=== PATIENT | female | born 1930 | race Asian ===

== ENCOUNTER 2016-12-30 10:48 | Inpatient (IN) | payer OTHER ==
[~2016-12-30] VITALS: Ht 157.5 cm; Wt 48.5 kg
[2016-12-30] MEDS ORDERED: ONDANSETRON HCL/PF - ER 4 MG/2 ML VIAL IV ONE (11:00)
[2016-12-30] MEDS ORDERED: IV NS 0.9% 500 ML BAG IV ONE (11:00)
[2016-12-30] MEDS ORDERED: MECLIZINE HCL 25 MG TABLET PO ONE (11:00)
--- NOTE | 2016-12-30 11:00 | NUR ---
PT BIBA FOR SYNCOPAL EPISODE IN STORE. PT AAOX2. NOTED GEN WEAKNESS. VSS. NO TRAUMA NOTED. MD AT BS FOR EVAL. SAFETY AND COMFORT MEASURES PROVIDED. WILL MONITOR.
[2016-12-30] MEDS ORDERED: MECLIZINE HCL 25 MG TABLET ONE (11:13)
[2016-12-30] MEDS ORDERED: ONDANSETRON HCL/PF 4 MG/2 ML VIAL ONE (11:14)
[2016-12-30] MEDS ORDERED: IV SET PRIMARY PUMP SET 1 EA INFUS.SET MC ONE ×2 (11:14→15:16)
[2016-12-30] MEDS ORDERED: IV NS 0.9% 500 ML IV ONE (11:14)
--- NOTE | 2016-12-30 11:15 | NUR ---
IV ACESS STARTED. PT MEDICATED ORDERED.
--- NOTE | 2016-12-30 11:20 | NUR ---
REPAIRER SWITCHGEAR AT FOR BLOOD DRAW.
[2016-12-30 11:29] LABS: BASOPHILS % (AUTO) 0.6 % (0.0-2.0); EOSINOPHILS # (AUTO) 0.1 /CMM (0.0-0.7); EOSINOPHILS % (AUTO) 2.6 % (0.0-6.0); HEMATOCRIT 40 % (33-45); HEMOGLOBIN 13.2 g/dL (11.5-14.8); LYMPHOCYTES # (AUTO) 0.9 /CMM (0.8-4.8); LYMPHOCYTES % (AUTO) 16.4 % (20.0-44.0); MEAN CORPUSCULAR HEMOGLOBIN 31 PG (26.0-33.0); MEAN CORPUSCULAR HGB CONC 34 g/dl (31.0-36.0); MEAN CORPUSCULAR VOLUME 91 fL (82-100); MONOCYTES # (AUTO) 0.4 /CMM (0.1-1.30); MONOCYTES % (AUTO) 7.1 % (2.0-12.0); NEUTROPHILS % (AUTO) 73.3 % (43.0-81.0); PLATELET COUNT (AUTO) 204 /CMM (150-450); RDW COEFFICIENT OF VARIATION 14.9 (11.5-15.0); RED BLOOD CELL COUNT(AUTO) 4.32 MIL/uL (4.0-5.2); WHITE BLOOD COUNT (AUTO) 5.4 K/uL (4.3-11.0)
--- NOTE | 2016-12-30 11:30 | NUR ---
PT TAKEN TO CT.
[2016-12-30 11:46] LABS: CALCIUM, SERUM 9.2 mg/dL (8.5-10.1); CARBON DIOXIDE 24 mmol/L (21-32); CHLORIDE 101 mmol/L (98-107); CREATININE 1.1 mg/dL (0.6-1.3); GLUCOSE 152 mg/dL (74-106); POTASSIUM 4.5 mmol/L (3.5-5.1); SODIUM SERUM 134 mmol/L (136-145); UREA NITROGEN, BLOOD 21 mg/dL (7-18)
[2016-12-30 11:48] LABS: INR 1.87 (0.87-1.13); PROTHROMBIN TIME 20.1 SECS (9.5-12.7)
[2016-12-30 11:54] LABS: TROPONIN I < 0.017 ng/mL (0.00-0.056)
--- NOTE | 2016-12-30 12:44 | NUR ---
PAGED DIVE SUPERINTENDENT FOR [facility] DR FRASER
--- NOTE | 2016-12-30 13:04 | NUR ---
CALLED GREG NURSING DIGITAL ASSET COORDINATOR FOR TELE BED
--- NOTE | 2016-12-30 13:07 | NUR ---
REPAGED DR FRASER
[2016-12-30] MEDS ORDERED: ALEN70TA45 PO (13:14)
[2016-12-30] MEDS ORDERED: AMLO5TAB2 PO (13:14)
[2016-12-30] MEDS ORDERED: LABE200T PO (13:14)
[2016-12-30] MEDS ORDERED: ALLO100T PO (13:14)
[2016-12-30] MEDS ORDERED: WARF2TAB6 PO (13:14)
[2016-12-30] MEDS ORDERED: WARF1TAB6 PO (13:14)
[2016-12-30] MEDS ORDERED: DIGO125T PO (13:14)
[2016-12-30] MEDS ORDERED: SIMV20TA6 PO (13:14)
[2016-12-30] MEDS ORDERED: MAGN400T26 PO (13:14)
[2016-12-30] MEDS ORDERED: LOSA50TA21 PO (13:14)
--- NOTE | 2016-12-30 13:39 | NUR ---
REPORT GIVEN TO LANDEN WILSON FOR TELE [phone]
--- NOTE | 2016-12-30 14:15 | NUR ---
LIQUID LOADER NOTES RECEIVED REPORT FROM ER NURSE. PATIENT ARRIVED TO UNIT AT 1405. PATIENT VITAL SIGNS CHECKED, BP 174/71, DR FRASER MADE AWARE. NO NEW ORDERS RECEIVED. NO SIGNS OR SYMPTOMS OF DISTRESS. PATIENT'S SON AND GRANDSON ARE AT THE BEDSIDE. PATIENT SPEAKS [place] ONLY. WILL CONTINUE TO MONITOR, ASSESS AND EDUCATE PATIENT THROUGH OUT MY SHIFT.
[2016-12-30] MEDS ORDERED: MAGNESIUM HYDROXIDE 30 ML UDC PO PRN (14:30)
[2016-12-30] MEDS ORDERED: HYDROCODONE/APAP 5/325MG 1 EACH TABLET PO PRN (14:30)
[2016-12-30] MEDS ORDERED: MAG HYDROX/AL HYDROX/SIMETH 30 ML UDC PO PRN (14:30)
[2016-12-30] MEDS ORDERED: IV NS 0.9% 500 ML IV SCH (14:30)
[2016-12-30] MEDS ORDERED: Z GUARD REMEDY 2 OZ OINT TP PRN (14:30)
[2016-12-30] MEDS ORDERED: ACETAMINOPHEN 325 MG TABLET PO PRN (14:30)
[2016-12-30] MEDS ORDERED: ONDANSETRON HCL/PF 4 MG/2 ML VIAL IVP PRN (14:30)
[2016-12-30] MEDS ORDERED: ZOLPIDEM TARTRATE 5 MG TABLET PO PRN (14:30)
[2016-12-30] MEDS ORDERED: SET RED CAP 1 EA INFUS.SET MC ONE (15:16)
[2016-12-30] MEDS: IV NS 0.9% 1,000 ML IV PRN (15:28)
[2016-12-30 16:00] VITALS: BP 153/72
[2016-12-30] MEDS ORDERED: WARFARIN SODIUM 2 MG TABLET PO SCH (17:00)
--- NOTE | 2016-12-30 18:39 | NUR ---
RN CLOSING NOTES PATIENT IS IN BED, ALERT AND ORIENTED TO NAME, PLACE AND TIME. BED IN LOW POSITION, LOCKED AND TWO SIDE RAILS ARE UP. PORTUGUESE SPEAKER. NO SIGNS OR SYMPTOMS OF DISTRESS. PATIENT DENIED PAIN. DIGOXIN LEVEL IS PENDING. IV SITE IS POTENT AND INTACT, NS FLUIDS ARE CURRENTLY RUNNING AT 50ML/HR. FLUID ORDER IS 75ML/HR, MD MADE AWARE OF HIGH BLOOD PRESSURE AND FLUID CAN BE INCREASED WHEN BLOOD PRESSURE IS LOWERED. PER PHARMACY, INR NEEDS TO BE ORDER DAILY FOR WARFARIN. WILL ENDORSE TO SHIPPING HAND NURSE.
--- NOTE | 2016-12-30 19:49 | NUR ---
FINISHER MAP AND CHART INITIAL NOTES: RECEIVED REPORT FROM CARMIT RN. PT ON BED, AWAKE, A/O X3 SENE[place] SPEAKING, PLEASANT LADY, ON ROOM AIR, RESPIRATION EVEN AND UNLABORED, NO SOB NOTED, DENIES ANY PAIN OR DISCOMFORT ATT HIS TIME. DENIES ANY CHEST PAIN LIGHT HEADEDNESS OR DIZZINESS. LEFT HAND IV G20 PATENT AND FLUSHING WELL, WITH ONGOING IVF ORDERED. ON TELE SINUS RHYTHM HR 69. SAFETY PRECAUTION FOR FALL INITIATED CALL LIGHT IN REACH, WILL CONTINUE TO MONITOR.
[2016-12-30 20:00] VITALS: BP_SYST 144; BP_SYST 157; BP_SYST 178; BP_DIAS 63; BP_DIAS 65; BP_DIAS 77
--- NOTE | 2016-12-30 20:00 | NUR ---
CIVIL GEOTECHNICAL ENGINEER NOTES: ORTHOSTATIC BP REVEAL: LAYING IN BED: 144/65 HR 67 RR 20 SPO2 98% 97.4 SITTIN/63 HR 73 RR 20 SPO2 98% 97.4 STANDIN/77 HR 73 RR 20 SPO2 98% 97.4 PT DENIES ANY DIZZINESS LIGHT HEADEDNESS OR CHEST PAIN. WILL CONTINUE TO MONITOR
[2016-12-30 22:00] VITALS: BP_SYST 138; BP_SYST 141; BP_SYST 145; BP_DIAS 62; BP_DIAS 72; BP_DIAS 76
--- NOTE | 2016-12-30 22:00 | NUR ---
ABRASIVE GRADER HELPER NOTES: RECHECKED ORTHOSTATIC BP AND REVEAL: LAYING IN BED: 145/72 HR 68 RR 19 98.2 95% SITTIN/62 HR 75 RR 19 98.2 95% STANDIN/76 HR 76 RR 19 98.2 95% PT DENIES ANY CHEST PAIN DIZZINESS OR LIGHT HEADEDNESS
[2016-12-30] MEDS: SIMVASTATIN 20 MG TABLET PO SCH (22:18)
[2016-12-31] VITALS: BP_SYST 131; BP_SYST 133; BP_SYST 147; BP_DIAS 68; BP_DIAS 70; BP_DIAS 71
[2016-12-31] MEDS: IV NS 0.9% 1,000 ML IV PRN (03:59)
[2016-12-31 04:00] VITALS: BP_SYST 148; BP_SYST 149; BP_SYST 155; BP_SYST 181; BP_DIAS 70; BP_DIAS 73; BP_DIAS 85
--- NOTE | 2016-12-31 06:44 | NUR ---
tele marketing executive closing notes: pt on bed, awake, remains on room air, no sob noted, left hand iv access remains patent and flushing well, infusing with ivf ns. remains on sinus rhythm hr 80. vs remains stable. orthostatic bp result relayed to md cable television installer. no episode of dizziness or light headedness noted throughout the shift. pt denies any chest pain or discomfort. safety precautions for fall remains engaged. call light in reach. will endorse to day rn for girish.
--- NOTE | 2016-12-31 07:20 | NUR ---
AGRICULTURAL LENDER NOTES Patient in bed, awake, alert and oriented, no distress noted, denies pain or discomfort at this time, breathing even and unlabored, no sob, safety measures in placed, needs anticipated and met, call light within reach, will continue to monitor.
[2016-12-31 07:26] LABS: BASOPHILS % (AUTO) 0.3 % (0.0-2.0); EOSINOPHILS # (AUTO) 0.1 /CMM (0.0-0.7); EOSINOPHILS % (AUTO) 2.3 % (0.0-6.0); HEMATOCRIT 37 % (33-45); HEMOGLOBIN 12.6 g/dL (11.5-14.8); LYMPHOCYTES # (AUTO) 1.1 /CMM (0.8-4.8); LYMPHOCYTES % (AUTO) 21.4 % (20.0-44.0); MEAN CORPUSCULAR HEMOGLOBIN 31 PG (26.0-33.0); MEAN CORPUSCULAR HGB CONC 34 g/dl (31.0-36.0); MEAN CORPUSCULAR VOLUME 91 fL (82-100); MONOCYTES # (AUTO) 0.5 /CMM (0.1-1.30); MONOCYTES % (AUTO) 9.2 % (2.0-12.0); NEUTROPHILS # (AUTO) 3.5 /CMM (1.8-8.9); NEUTROPHILS % (AUTO) 66.8 % (43.0-81.0); PLATELET COUNT (AUTO) 213 /CMM (150-450); RDW COEFFICIENT OF VARIATION 15.6 (11.5-15.0); WHITE BLOOD COUNT (AUTO) 5.2 K/uL (4.3-11.0)
[2016-12-31 08:00] VITALS: BP 180/79
[2016-12-31 08:03] LABS: CALCIUM, SERUM 8.8 mg/dL (8.5-10.1); CREATININE 0.9 mg/dL (0.6-1.3); MAGNESIUM 2.5 mg/dL (1.8-2.4); PHOSPHORUS 3.4 mg/dL (2.5-4.9); POTASSIUM 4.5 mmol/L (3.5-5.1)
[2016-12-31] MEDS: AMLODIPINE BESYLATE 5 MG TABLET PO SCH (08:27)
[2016-12-31] MEDS: ALLOPURINOL 100 MG TABLET PO SCH (08:28)
[2016-12-31 08:57] LABS: TROPONIN I < 0.017 ng/mL (0.00-0.056)
[2016-12-31] MEDS ORDERED: LOSARTAN POTASSIUM 50 MG TABLET PO SCH (09:00)
[2016-12-31] MEDS ORDERED: MAGNESIUM OXIDE 400 MG TABLET PO SCH (09:00)
--- NOTE | 2016-12-31 09:00 | NUR ---
RN MS NOTES Patient seen and examined by Dr. Del Rio, aware of elevated blood pressure, received new orders, order noted and carried out.
[2016-12-31] MEDS: VALSARTAN 80 MG TABLET PO SCH (09:30)
[2016-12-31 11:00] VITALS: BP 149/67
[2016-12-31] MEDS ORDERED: DIGOXIN 0.125 MG TABLET PO SCH (13:00)
[2016-12-31 13:48] LABS: INR 1.17 (0.87-1.13); PROTHROMBIN TIME 12.6 SECS (9.5-12.7)
[2016-12-31 15:38] LABS: APPEARANCE,URINE CLOUDY (CLEAR); BILIRUBIN,URINE NEGATIVE (NEGATIVE); BLOOD, URINE TRACE Ery/uL (NEGATIVE); COLOR,URINE YELLOW (YELLOW); KETONES,URINE NEGATIVE (NEGATIVE); LEUKOCYTE ESTERASE ,URINE 3+ (NEGATIVE); NITRITE, URINE NEGATIVE (NEGATIVE); PH,URINE 6.5 (5.0-8.0); PROTEIN,URINE NEGATIVE (NEGATIVE); UGLUCOSE NEGATIVE (NEGATIVE); UROBILINOGEN,URINE 0.2 EU/dL (0.2)
[2016-12-31 15:53] LABS: CANNABINOID, URINE NEGATIVE (NEGATIVE); PHENCYCLIDINE SCREEN,URINE NEGATIVE (NEGATIVE)
[2016-12-31 15:55] LABS: IRON, SERUM 73 ug/dl (50-175); TOTAL IRON BINDING CAPACITY 280 ug/dl (250-450)
[2016-12-31 16:00] VITALS: BP 150/76
[2016-12-31 16:15] LABS: ADD URINE CULTURE YES; BACTERIA,URINE Few /HPF (None Seen); SQUAMOUS EPITHELIAL CELL,UR Few /HPF (None Seen); WBC,URINE 51-80 /HPF (0-3)
[2016-12-31 16:27] LABS: FERRITIN 143 ng/mL (8-388); THYROID STIMULATING HORMONE 0.568 uIU/mL (0.358-3.74)
[2016-12-31] MEDS ORDERED: WARFARIN SODIUM 1 MG TABLET PO SCH ×2 (17:00)
--- NOTE | 2016-12-31 17:00 | NUR ---
RN MS NOTES INFORMED DR. FRASER RE: UA RESULT, RECEIVED NEW ORDER FOR ROCEPHIN. ORDER NOTED AND CARRIED OUT.
[2016-12-31] MEDS ORDERED: CEFTRIAXONE 1 G in IV D5W 50 ML IV SCH (18:00)
[2016-12-31] MEDS ORDERED: SECONDARY IV SET 1 EA INFUS.SET MC ONE (18:04)
--- NOTE | 2016-12-31 18:53 | NUR ---
RN MS NOTES Patient on IV Rocephin and infusing well, no adverse reaction noted, denies pain or discomfort at this time, safety measures in placed, call light within reach, will endorse to third shift lieutenant for girish.
[2016-12-31 20:00] VITALS: BP 146/59
[2016-12-31] MEDS: SIMVASTATIN 20 MG TABLET PO SCH (20:51)
--- NOTE | 2017-01-01 07:25 | NUR ---
RN MS NOTES Patient in bed, awake, alert and oriented, no s/sx of distress noted, on iv fluid running at 75cc/hr, denies pain or discomfort at this time, needs attended and met, safety measures in placed, call light within reach, will continue to monitor.
[2017-01-01 07:45] LABS: INR 1.16 (0.87-1.13); PROTHROMBIN TIME 12.5 SECS (9.5-12.7)
[2017-01-01 08:00] VITALS: BP 161/67
[2017-01-01 08:28] VITALS: BP 161/67
[2017-01-01] MEDS: AMLODIPINE BESYLATE 5 MG TABLET PO SCH (08:28)
[2017-01-01] MEDS: ALLOPURINOL 100 MG TABLET PO SCH (08:28)
[2017-01-01] MEDS: VALSARTAN 80 MG TABLET PO SCH (08:28)
[2017-01-01] MEDS ORDERED: RIVA10TA PO (08:59)
[2017-01-01] MEDS ORDERED: VALS160T2 PO (08:59)
[2017-01-01] MEDS ORDERED: SULF1TAB48 PO (08:59)
--- NOTE | 2017-01-01 11:08 | NUR ---
RN MS NOTES PATIENT RECEIVED DISCHARGE INSTRUCTIONS, SON AT BEDSIDE, BOTH VERBALIZED UNDERSTANDING OF DISCHARGE ORDERS AND NEW MEDICATIONS, PRESCRIPTION PROVIDED TO PATIENT, ASSESSMENT DONE, SKIN INTACT, DENIES PAIN OR DISCOMFORT PATIENT LEFT FACILITY IN STABLE CONDITION, VIA PRIVATE CAR.
[2017-01-01] MEDS ORDERED: RIVAROXABAN 10 MG TABLET PO SCH (17:00)
[2017-01-05] MEDS ORDERED: ALENDRONATE 70 MG TABLET PO SCH (07:30)
== END 2017-01-01 11:15 | disposition home or self-care (01) | DRG 641 ==
LOC: ER 10:51 → TELE 13:47 → MED 12-31 08:59
PROVIDERS: ADMIT Family Medicine; ATTEND Family Medicine
DX: E86.9 Volume depletion, unspecified (principal); Q60.0 Renal agenesis, unilateral; E87.1 Hypo-osmolality and hyponatremia; E78.5 Hyperlipidemia, unspecified; I10 Essential (primary) hypertension; I48.91 Unspecified atrial fibrillation; M81.0 Age-related osteoporosis without current pathological fracture; Z85.038 Personal history of other malignant neoplasm of large intestine; Z86.73 Personal history of transient ischemic attack (TIA), and cerebral infarction without residual deficits; E79.0 Hyperuricemia without signs of inflammatory arthritis and tophaceous disease; I35.0 Nonrheumatic aortic (valve) stenosis
CPT/HCPCS: 36415; 70450-TC; 71010-TC; 80048-TC; 80061-TC; 80162-TC; 80305; 81000-TC; 82728-TC; 83540-TC; 83735-TC; 84100-TC; 84439-TC; 84443-TC; 84484-TC; 85025-TC; 85610-TC; 85730-TC; 87081-TC; 87086-TC; 93307-TC; A4606; J0696; J2405; J7030; J7040; J7060; J8597; Z7610